=== PATIENT | male | born 1995 | race African-American/Black ===

== ENCOUNTER 2020-03-29 21:22 | Emergency (ER) | payer MEDICAID ==
[~2020-03-29] VITALS: Ht 182.9 cm; Wt 70.5 kg
--- NOTE | 2020-03-29 22:54 | PHYS DOC ---
Past Medical History Past Medical History: Sickle Cell Disease Past Surgical History: No Surgical History Smoking Status: Never Smoker Alcohol Use: Occasionally General Adult EDM: Chief Complaint: PAIN CONTROL HPI: HPI: Patient is a 24 year [id number] male past medical history of sickle cell presents with a chief complaint of sickle cell pain. Patient states his normal sickle cell pain is in his back and his right hip. This is the current location of his current pain. Patient takes oxycodone do not daily for his pain. Patient states pain is been ongoing for 1 week. Patient states usual flares only last 2 or 3 days. Patient is new to the area from [place]. Patient states and his sickle cell clinic in [place] they usually treat patient with IV fluids Toradol Benadryl and Dilaudid. Patient denies any chest pain or shortness of breath. Review of Systems: Review of Systems: Constitutional: Denies fever or chills. [] Eyes: Denies change in visual acuity. [] HENT: Denies nasal congestion or sore throat. [] Respiratory: Denies cough or shortness of breath. [] Cardiovascular: Denies chest pain or edema. [] GI: Denies abdominal pain, nausea, vomiting, bloody stools or diarrhea. [] : Denies dysuria. [] Musculoskeletal: positive back and hip pain Integument: Denies rash. [] Neurologic: Denies headache, focal weakness or sensory changes. [] Endocrine: Denies polyuria or polydipsia. [] Lymphatic: Denies swollen glands. [] Psychiatric: Denies depression or anxiety. [] Heart Score: Risk Factors: Risk Factors: DM, Current or recent (<one month) smoker, HTN, HLP, family history of CAD, obesity. Risk Scores: Score 0 - 3: 2.5% MACE over next 6 weeks - Discharge Home Score 4 - 6: 20.3% MACE over next 6 weeks - Admit for Clinical Observation Score 7 - 10: 72.7% MACE over next 6 weeks - Early Invasive Strategies Allergies: Allergies: Allergies Coded Allergies Type Severity Reaction Last Updated Verified fentanyl Allergy Unknown Unknown 03/29/20 Yes haloperidol Allergy Unknown Unknown 03/29/20 Yes morphine Allergy Unknown Unknown 03/29/20 Yes Physical Exam: PE: Constitutional: Well developed, well nourished, no acute distress, non-toxic appearance. [] HENT: Normocephalic, atraumatic, bilateral external ears normal, oropharynx moist, no oral exudates, nose normal. [] Eyes: PERRLA, EOMI, conjunctiva normal, no discharge. [] Neck: Normal range of motion, no tenderness, supple, no stridor. [] Cardiovascular:Heart rate regular rhythm, no murmur [] Lungs & Thorax: Bilateral breath sounds clear to auscultation [] Abdomen: Bowel sounds normal, soft, no tenderness, no masses, no pulsatile masses. [] Skin: Warm, dry, no erythema, no rash. [] Back: No tenderness, no CVA tenderness. [] Extremities: No tenderness, no cyanosis, no clubbing, ROM intact, no edema. [] Neurologic: Alert and oriented X 3, normal motor function, normal sensory function, no focal deficits noted. [] Psychologic: Affect normal, judgement normal, mood normal. [] Current Patient Data: Vital Signs: Vital Signs Date Time Temp Pulse Resp B/P (MAP) Pulse Ox O2 Delivery O2 Flow Rate FiO2 03/29/20 21:35 98.1 71 18 117/74 (88) 97 Room Air 98.1 EKG: EKG: [] Radiology/Procedures: Radiology/Procedures: [] Course & Med Decision Making: Course & Med Decision Making Pertinent Labs and Imaging studies reviewed. (See chart for details) []Treatment included toradol, NS, benadryl and dilaudid. Patient states pain improved and tolerable. Patient states comfortable to go home. Prior to discharge treated with another dose of diluadid. Patients vital signs stable. Fatou Disclaimer: Fatou Disclaimer: This electronic medical record was generated, in whole or in part, using a voice recognition dictation system. Departure Departure Impression: Primary Impression: Sickle-cell disease with pain Disposition: HOME, SELF-CARE Condition: STABLE Patient Instructions: Sickle Cell Pain Crisis Justicifation of Admission Dx: Justifications for Admission: Justification of Admission Dx: N/A CARLOS ENRIQUE HAWTHORNE DO Mar 29, 2020 22:54
[2020-03-29] MEDS ORDERED: KETOROLAC 30 MG/ML VIAL. IVP ONE (23:00)
[2020-03-29] MEDS ORDERED: diphenhydrAMINE 50 MG/ML VIAL IVP ONE (23:00)
[2020-03-29] MEDS ORDERED: IV NORMAL SALINE 1000ML BAG 1,000 ML IV ONE (23:00)
[2020-03-29] MEDS ORDERED: HYDROmorphone 2 MG/ML VIAL IVP ONE (23:00)
[2020-03-30 01:00] VITALS: BP 104/51
[2020-03-30] MEDS ORDERED: HYDROmorphone 2 MG/ML VIAL IVP ONE (01:00)
== END 2020-03-30 01:14 | disposition home or self-care (01) ==
LOC: ER 21:22
DX: D57.00 Hb-SS disease with crisis, unspecified (principal); M25.551 Pain in right hip; M54.9 Dorsalgia, unspecified; Z88.4 Allergy status to anesthetic agent; Z88.5 Allergy status to narcotic agent; Z88.8 Allergy status to other drugs, medicaments and biological substances
CPT/HCPCS: 96361; 96374; 96375; 96376; 99284; J1170; J1200; J1885; J7030

== ENCOUNTER 2020-06-11 16:55 | Emergency (ER) | payer MEDICAID ==
[~2020-06-11] VITALS: Ht 182.9 cm; Wt 68.0 kg
[2020-06-11 18:28] LABS: BASO # 0.1 x10^3/uL (0.0-0.2); BASO % 1 % (0-3); EOS # 0.3 x10^3/uL (0.0-0.7); EOS % 3 % (0-3); HEMATOCRIT 26.3 % (39.0-53.0); LYMPH % 40 % (24-48); MEAN CORPUSCULAR HEMOGLOBIN 30 pg (25-35); MEAN CORPUSCULAR HGB CONC 34 g/dL (31-37); MEAN CORPUSCULAR VOLUME 86 fL (79-100); MONO # 1.2 x10^3/uL (0.0-1.1); MONO % 12 % (0-9); NEUT # 4.6 x10^3/uL (1.8-7.7); NEUT % 45 % (31-73); PLATELET COUNT 370 x10^3/uL (140-400); RED BLOOD COUNT 3.06 x10^6/uL (4.30-5.70); RED CELL DISTRIBUTION WIDTH 19.6 % (11.5-14.5); WHITE BLOOD COUNT 10.2 x10^3/uL (4.0-11.0)
[2020-06-11] MEDS ORDERED: diphenhydrAMINE 50 MG/ML VIAL IVP ONE (18:30)
[2020-06-11] MEDS ORDERED: ONDANSETRON PF 4 MG/2 ML VIAL. IVP ONE (18:30)
[2020-06-11] MEDS ORDERED: HYDROmorphone 2 MG/ML VIAL IVP ONE ×2 (18:30→20:15)
[2020-06-11] MEDS ORDERED: IV NORMAL SALINE 1000ML BAG 1,000 ML IV ONE (18:30)
[2020-06-11] MEDS ORDERED: KETOROLAC 30 MG/ML VIAL. IVP ONE (18:30)
[2020-06-11 18:40] LABS: CALCIUM 8.7 mg/dL (8.5-10.1); CREATININE 0.8 mg/dL (0.7-1.3); GFR 142.5; POTASSIUM 3.8 mmol/L (3.5-5.1)
[2020-06-11 18:45] LABS: ALBUMIN 3.9 g/dL (3.4-5.0); ALBUMIN/GLOBULIN RATIO 1.3 (1.0-1.7); TOTAL BILIRUBIN 1.7 mg/dL (0.2-1.0); TOTAL PROTEIN 6.9 g/dL (6.4-8.2)
[2020-06-11 20:00] VITALS: BP 96/54
--- NOTE | 2020-06-11 20:54 | PHYS DOC ---
Past Medical History Past Medical History: Sickle Cell Disease Past Surgical History: No Surgical History Smoking Status: Never Smoker Alcohol Use: Occasionally General Adult EDM: Chief Complaint: OTHER COMPLAINTS HPI: HPI: Patient is a 24 year old male presented to the ED today complaining of sickle cell pain. Patient states the pain began 5 days ago. Patient is complaining of 10 out of 10 low back pain as well as right hip pain which she states is consistent with his sickle cell pain. He states he is from [place] and has not established any care in the sickle cell clinic locally. Denies any fever, chest pain or shortness of breath. He states he normally gets IV fluids, Toradol, nausea medicine, Benadryl and Dilaudid. States he has taken oxycodone with no relief Review of Systems: Review of Systems: Constitutional: Denies fever or chills. [] Eyes: Denies change in visual acuity. [] HENT: Denies nasal congestion or sore throat. [] Respiratory: Denies cough or shortness of breath. [] Cardiovascular: Denies chest pain or edema. [] GI: Denies abdominal pain, nausea, vomiting, bloody stools or diarrhea. [] : Denies dysuria. [] Musculoskeletal: Reports right hip pain and low back pain Integument: Denies rash. [] Neurologic: Denies headache, focal weakness or sensory changes. [] Psychiatric: Denies depression or anxiety. [] Heart Score: Risk Factors: Risk Factors: DM, Current or recent (<one month) smoker, HTN, HLP, family history of CAD, obesity. Risk Scores: Score 0 - 3: 2.5% MACE over next 6 weeks - Discharge Home Score 4 - 6: 20.3% MACE over next 6 weeks - Admit for Clinical Observation Score 7 - 10: 72.7% MACE over next 6 weeks - Early Invasive Strategies Current Medications: Current Medications Medications (Trade) Dose Ordered Sig/Heather Start Time Stop Time Status Last Admin Dose Admin Diphenhydramine HCl (Benadryl) 25 mg 1X ONCE 06/11/20 18:30 06/11/20 18:31 DC 06/11/20 18:30 25 MG Hydromorphone HCl (Dilaudid) 1 mg 1X ONCE 06/11/20 20:15 06/11/20 20:16 DC 06/11/20 20:31 1 MG Ketorolac Tromethamine (Toradol 30mg Vial) 30 mg 1X ONCE 06/11/20 18:30 06/11/20 18:31 DC 06/11/20 18:30 30 MG Ondansetron HCl (Zofran) 4 mg 1X ONCE 06/11/20 18:30 06/11/20 18:31 DC 06/11/20 18:30 4 MG Sodium Chloride 1,000 ml @ 1,000 mls/hr 1X ONCE 06/11/20 18:30 06/11/20 19:29 DC 06/11/20 18:33 1,000 MLS/HR Allergies: Allergies: Allergies Coded Allergies Type Severity Reaction Last Updated Verified fentanyl Allergy Unknown Unknown 03/29/20 Yes haloperidol Allergy Unknown Unknown 03/29/20 Yes morphine Allergy Unknown Unknown 03/29/20 Yes Physical Exam: PE: Constitutional: Well developed, well nourished, no acute distress, non-toxic appearance. [] HENT: Normocephalic, atraumatic, bilateral external ears normal, oropharynx moist, no oral exudates, nose normal. [] Eyes: PERRLA, EOMI, conjunctiva normal, no discharge. [] Neck: Normal range of motion, no tenderness, supple, no stridor. [] Cardiovascular:Heart rate regular rhythm, no murmur [] Lungs & Thorax: Bilateral breath sounds clear to auscultation [] Abdomen: Bowel sounds normal, soft, no tenderness, no masses, no pulsatile mas ses. [] Skin: Warm, dry, no erythema, no rash. [] Back: No tenderness, no CVA tenderness. [] Extremities: No tenderness, no cyanosis, no clubbing, ROM intact, no edema. [] Neurologic: Alert and oriented X 3, normal motor function, normal sensory function, no focal deficits noted. [] Psychologic: Affect normal, judgement normal, mood normal. [] Current Patient Data: Labs: Laboratory Tests Test 06/11/20 18:18 White Blood Count 10.2 x10^3/uL (4.0-11.0) Red Blood Count 3.02 x10^6/uL (4.30-5.70) L Hemoglobin 9.0 g/dL (13.0-17.5) L Hematocrit 26.3 % (39.0-53.0) L Mean Corpuscular Volume 86 fL (79-100) Mean Corpuscular Hemoglobin 30 pg (25-35) Mean Corpuscular Hemoglobin Concent 34 g/dL (31-37) Red Cell Distribution Width 19.6 % (11.5-14.5) H Platelet Count 370 x10^3/uL (140-400) Neutrophils (%) (Auto) 45 % (31-73) Lymphocytes (%) (Auto) 40 % (24-48) Monocytes (%) (Auto) 12 % (0-9) H Eosinophils (%) (Auto) 3 % (0-3) Basophils (%) (Auto) 1 % (0-3) Neutrophils # (Auto) 4.6 x10^3/uL (1.8-7.7) Lymphocytes # (Auto) 4.0 x10^3/uL (1.0-4.8) Monocytes # (Auto) 1.2 x10^3/uL (0.0-1.1) H Eosinophils # (Auto) 0.3 x10^3/uL (0.0-0.7) Basophils # (Auto) 0.1 x10^3/uL (0.0-0.2) Absolute Reticulocyte Count 0.193 x10^6/uL (0.020-0.120) Percent Reticulocyte Count 6.4 % (0.5-2.3) H Immature Reticulocyte Fraction 0.70 (0.20-0.60) H Sodium Level 142 mmol/L (136-145) Potassium Level 3.8 mmol/L (3.5-5.1) Chloride Level 105 mmol/L (98-107) Carbon Dioxide Level 27 mmol/L (21-32) Anion Gap 10 (6-14) Blood Urea Nitrogen 6 mg/dL (8-26) L Creatinine 0.8 mg/dL (0.7-1.3) Estimated GFR (Cockcroft-Gault) 142.5 BUN/Creatinine Ratio 8 (6-20) Glucose Level 111 mg/dL (70-99) H Calcium Level 8.7 mg/dL (8.5-10.1) Total Bilirubin 1.7 mg/dL (0.2-1.0) H Aspartate Amino Transferase (AST) 17 U/L (15-37) Alanine Aminotransferase (ALT) 13 U/L (16-63) L Alkaline Phosphatase 171 U/L (46-116) H Total Protein 6.9 g/dL (6.4-8.2) Albumin 3.9 g/dL (3.4-5.0) Albumin/Globulin Ratio 1.3 (1.0-1.7) Laboratory Tests 06/11/20 18:18 Laboratory Tests 06/11/20 18:18 Vital Signs: Vital Signs Date Time Temp Pulse Resp B/P (MAP) Pulse Ox O2 Delivery O2 Flow Rate FiO2 06/11/20 20:31 18 98 Room Air 06/11/20 17:50 98.4 97 116/67 (83) 98.4 EKG: EKG: [] Radiology/Procedures: Radiology/Procedures: [] Course & Med Decision Making: Course & Med Decision Making Pertinent Labs and Imaging studies reviewed. (See chart for details) This is a 24-year-old male patient with history of sickle cell presenting to the ED today complaining of pain to the low back and right hip consistent with his sickle cell. CBC with hemoglobin of 9.0 hematocrit 26.3, reticulocyte count 6.4 immature reticulocyte fraction 0.70 absolute reticulocyte 0.193. We do not have a baseline for this labs. Patient's pain is well controlled. He was given Dilaudid IV fluids Zofran Benadryl and Toradol. He states he is feeling better and would like to be discharged. I offered him admission but he declined. He was sent home. Encouraged to follow-up with a sickle cell clinic locally [facility]. Fatou Disclaimer: Fatou Disclaimer: This electronic medical record was generated, in whole or in part, using a voice recognition dictation system. Departure Departure Impression: Primary Impression: Sickle cell anemia with pain Disposition: 01 DC HOME SELF CARE/HOMELESS Condition: STABLE Referrals: NO PCP (PCP) Please follow-up with [facility] sickle cell clinic Patient Instructions: Sickle Cell Pain Crisis Additional Instructions: You were evaluated in the emergency room for sickle cell pain. Please follow-up with a sickle cell clinic locally including [facility]. Continue taking your oxycodone as needed for pain. AI SOLOMON LIVESTOCK COUNTER Jun 11, 2020 20:54
== END 2020-06-11 21:04 | disposition home or self-care (01) ==
LOC: ER 16:55
DX: D57.00 Hb-SS disease with crisis, unspecified (principal); M54.5 Low back pain; M25.551 Pain in right hip; Z88.4 Allergy status to anesthetic agent; Z88.5 Allergy status to narcotic agent; Z88.8 Allergy status to other drugs, medicaments and biological substances
CPT/HCPCS: 36415; 80053; 85025; 85045; 96361; 96374; 96375; 96376; 99285; J1170; J1200; J1885; J2405; J7030

== ENCOUNTER 2020-06-25 10:59 | Emergency (ER) | payer MEDICAID ==
[~2020-06-25] VITALS: Ht 182.9 cm; Wt 68.1 kg
[2020-06-25] MEDS ORDERED: IV NORMAL SALINE 1000ML BAG 1,000 ML IV ONE (12:15)
[2020-06-25 12:18] LABS: BASO # 0.1 x10^3/uL (0.0-0.2); BASO % 1 % (0-3); EOS # 0.1 x10^3/uL (0.0-0.7); EOS % 1 % (0-3); HEMATOCRIT 25.6 % (39.0-53.0); HEMOGLOBIN 8.7 g/dL (13.0-17.5); LYMPH # 2.4 x10^3/uL (1.0-4.8); LYMPH % 23 % (24-48); MEAN CORPUSCULAR HEMOGLOBIN 30 pg (25-35); MEAN CORPUSCULAR HGB CONC 34 g/dL (31-37); MEAN CORPUSCULAR VOLUME 89 fL (79-100); MONO # 0.9 x10^3/uL (0.0-1.1); MONO % 9 % (0-9); NEUT # 6.8 x10^3/uL (1.8-7.7); NEUT % 66 % (31-73); PLATELET COUNT 411 x10^3/uL (140-400); RED BLOOD COUNT 2.88 x10^6/uL (4.30-5.70); WHITE BLOOD COUNT 10.3 x10^3/uL (4.0-11.0)
[2020-06-25 12:31] LABS: CALCIUM 9.2 mg/dL (8.5-10.1); CREATININE 0.9 mg/dL (0.7-1.3); GFR 123.4
[2020-06-25 12:36] LABS: ALBUMIN 3.9 g/dL (3.4-5.0); ALBUMIN/GLOBULIN RATIO 1.3 (1.0-1.7); TOTAL BILIRUBIN 1.7 mg/dL (0.2-1.0)
[2020-06-25] MEDS ORDERED: HYDROmorphone 2 MG/ML VIAL IVP ONE (13:00)
[2020-06-25 13:45] VITALS: BP 106/80
--- NOTE | 2020-06-25 13:49 | ED.ADGEN ---
Past Medical History Past Medical History: Sickle Cell Disease Past Surgical History: No Surgical History Smoking Status: Never Smoker Alcohol Use: Occasionally General Adult EDM: Chief Complaint: GENERALIZED BODY ACHES HPI: HPI: Patient is a 25 year old AA male who presents emergency department with complaints of generalized body aches and back pain for the last 5 days. Patient states he has a history of sickle cell disease. Patient states that he took his oxycodone this morning at 10:00 with no relief of his pain. He denies any shortness of breath, chest pain, palpitations, abdominal pain, nausea, vomiting, diarrhea, numbness, tingling, or weakness. He denies any fever, cough, or fatigue. He denies any joint swelling or erythema. The patient currently rates his pain a 10 out of 10 on the pain scale, he denies any alleviating factors. Review of Systems: Review of Systems: Complete ROS is negative unless otherwise noted in HPI. Current Medications: Current Medications Medications (Trade) Dose Ordered Sig/Heather Start Time Stop Time Status Last Admin Dose Admin Hydromorphone HCl (Dilaudid) 1 mg 1X ONCE 06/25/20 13:00 06/25/20 13:01 DC 06/25/20 13:36 1 MG Sodium Chloride 1,000 ml @ 1,000 mls/hr Q1H ONCE 06/25/20 12:15 06/25/20 13:14 DC 06/25/20 12:45 1,000 MLS/HR Allergies: Allergies: Allergies Coded Allergies Type Severity Reaction Last Updated Verified fentanyl Allergy Intermediate Unknown 06/25/20 Yes haloperidol Allergy Intermediate Unknown 06/25/20 Yes morphine Allergy Intermediate Unknown 06/25/20 Yes mushroom Allergy Intermediate 06/25/20 Yes Physical Exam: PE: See Above Constitutional: Well developed, well nourished, no acute distress, non-toxic appearance. [] HENT: Normocephalic, atraumatic, bilateral external ears normal, nose normal. [] Eyes: PERRLA, EOMI, conjunctiva normal, no discharge. [] Neck: Normal range of motion, no stridor. [] Cardiovascular:Heart rate regular rhythm Lungs & Thorax: Respirations even and unlabored, no retractions, no respiratory distress Abdomen: soft, no tenderness Skin: Warm, dry, no erythema, no rash. [] Extremities: No cyanosis, ROM intact, no edema. [] Neurologic: Alert and oriented X 3, no focal deficits noted. [] Psychologic: Affect normal, judgement normal, mood normal. [] Current Patient Data: Labs: Laboratory Tests Test 06/25/20 11:45 White Blood Count 10.3 x10^3/uL (4.0-11.0) Red Blood Count 2.85 x10^6/uL (4.30-5.70) L Hemoglobin 8.7 g/dL (13.0-17.5) L Hematocrit 25.6 % (39.0-53.0) L Mean Corpuscular Volume 89 fL (79-100) Mean Corpuscular Hemoglobin 30 pg (25-35) Mean Corpuscular Hemoglobin Concent 34 g/dL (31-37) Red Cell Distribution Width 20.0 % (11.5-14.5) H Platelet Count 411 x10^3/uL (140-400) H Neutrophils (%) (Auto) 66 % (31-73) Lymphocytes (%) (Auto) 23 % (24-48) L Monocytes (%) (Auto) 9 % (0-9) Eosinophils (%) (Auto) 1 % (0-3) Basophils (%) (Auto) 1 % (0-3) Neutrophils # (Auto) 6.8 x10^3/uL (1.8-7.7) Lymphocytes # (Auto) 2.4 x10^3/uL (1.0-4.8) Monocytes # (Auto) 0.9 x10^3/uL (0.0-1.1) Eosinophils # (Auto) 0.1 x10^3/uL (0.0-0.7) Basophils # (Auto) 0.1 x10^3/uL (0.0-0.2) Absolute Reticulocyte Count 0.234 x10^6/uL (0.020-0.120) Percent Reticulocyte Count 8.2 % (0.5-2.3) H Immature Reticulocyte Fraction 0.72 (0.20-0.60) H Sodium Level 141 mmol/L (136-145) Potassium Level 4.0 mmol/L (3.5-5.1) Chloride Level 103 mmol/L (98-107) Carbon Dioxide Level 28 mmol/L (21-32) Anion Gap 10 (6-14) Blood Urea Nitrogen 6 mg/dL (8-26) L Creatinine 0.9 mg/dL (0.7-1.3) Estimated GFR (Cockcroft-Gault) 123.4 BUN/Creatinine Ratio 7 (6-20) Glucose Level 107 mg/dL (70-99) H Calcium Level 9.2 mg/dL (8.5-10.1) Total Bilirubin 1.7 mg/dL (0.2-1.0) H Aspartate Amino Transferase (AST) 24 U/L (15-37) Alanine Aminotransferase (ALT) 21 U/L (16-63) Alkaline Phosphatase 161 U/L (46-116) H Total Protein 7.0 g/dL (6.4-8.2) Albumin 3.9 g/dL (3.4-5.0) Albumin/Globulin Ratio 1.3 (1.0-1.7) Laboratory Tests 06/25/20 11:45 Laboratory Tests 06/25/20 11:45 Vital Signs: Vital Signs Date Time Temp Pulse Resp B/P (MAP) Pulse Ox O2 Delivery O2 Flow Rate FiO2 06/25/20 13:36 16 100 Room Air 06/25/20 11:17 98.5 100 113/59 (77) 98.5 EKG: EKG: [] Heart Score: Risk Factors: Risk Factors: DM, Current or recent (<one month) smoker, HTN, HLP, family history of CAD, obesity. Risk Scores: Score 0 - 3: 2.5% MACE over next 6 weeks - Discharge Home Score 4 - 6: 20.3% MACE over next 6 weeks - Admit for Clinical Observation Score 7 - 10: 72.7% MACE over next 6 weeks - Early Invasive Strategies Radiology/Procedures: Radiology/Procedures: [] Course & Med Decision Making: Course & Med Decision Making Pertinent Labs and Imaging studies reviewed. (See chart for details) 25-year-old male seen for sickle cell pain. Patient is hemoglobin is 8.7, his previous hemoglobin was 9.0. BMP revealed elevated bilirubin 1.7, elevated 161. Patient was given 1 L normal saline, 1 mg of Dilaudid in the emergency room he reported feeling better after these medications and he would like to go home.. I advised patient to continue taking his oxycodone at home as prescribed. Patient needs to follow-up with his primary care physician, return to the ER if symptoms worsen, fever, chest pain, or shortness of breath develops. Rigobertoon Disclaimer: Fatou Disclaimer: This electronic medical record was generated, in whole or in part, using a voice recognition dictation system. Departure Departure Impression: Primary Impression: Sickle cell anemia with pain Disposition: 01 DC HOME SELF CARE/HOMELESS Condition: STABLE Referrals: NO PCP (PCP) Patient Instructions: Sickle Cell Pain Crisis, [id number] Additional Instructions: Continue taking oxycodone at home as prescribed. Follow-up with your primary care physician, return to the ER if symptoms worsen, or if fever, chest pain, or shortness of breath develops. JENNA PONCE DRUG DEPARTMENT WORKER Jun 25, 2020 13:49
== END 2020-06-25 14:02 | disposition home or self-care (01) ==
LOC: ER 10:59
DX: D57.00 Hb-SS disease with crisis, unspecified (principal); Z88.4 Allergy status to anesthetic agent; Z88.5 Allergy status to narcotic agent; Z88.8 Allergy status to other drugs, medicaments and biological substances; Z91.018 Allergy to other foods
CPT/HCPCS: 36415; 80053; 85025; 85045; 96361; 96374; 99283; J1170; J7030

== ENCOUNTER 2020-08-29 11:13 | Emergency (ER) | payer MEDICAID ==
[~2020-08-29] VITALS: Ht 182.9 cm; Wt 68.0 kg
[2020-08-29 11:30] VITALS: BP 120/76
[2020-08-29] MEDS ORDERED: KETOROLAC 30 MG/ML VIAL. IVP ONE (11:45)
[2020-08-29] MEDS ORDERED: diphenhydrAMINE 50 MG/ML VIAL IVP ONE ×2 (11:45→14:00)
[2020-08-29] MEDS ORDERED: IV NORMAL SALINE 1000ML BAG 1,000 ML IV ONE (11:45)
[2020-08-29] MEDS ORDERED: HYDROmorphone 2 MG/ML VIAL IVP ONE ×2 (11:45→14:00)
[2020-08-29] MEDS ORDERED: PROCHLORPERAZINE 10 MG/2 ML VIAL. IV ONE (11:45)
--- NOTE | 2020-08-29 11:53 | PHYS DOC ---
Past Medical History Past Medical History: Sickle Cell Disease Past Surgical History: No Surgical History Smoking Status: Never Smoker Alcohol Use: Occasionally General Adult EDM: Chief Complaint: HIP PAIN HPI: HPI: Patient is a 25 year old male presenting to the ED today complaining of sickle cell pain rated as moderate described as sharp and shooting to the lower back, bilateral hips for two days.. Patient states the pain began 5 days ago. Denies any fever, chest pain or shortness of breath. He states he normally gets IV fluids, Toradol, nausea medicine, Benadryl and Dilaudid. States he has taken oxycodone with no relief Review of Systems: Review of Systems: Constitutional: Denies fever or chills. [] Eyes: Denies change in visual acuity. [] HENT: Denies nasal congestion or sore throat. [] Respiratory: Denies cough or shortness of breath. [] Cardiovascular: Denies chest pain or edema. [] GI: Denies abdominal pain, nausea, vomiting, bloody stools or diarrhea. [] : Denies dysuria. [] Musculoskeletal: Reports bilateral hip pain, low back pain due to sickle cell Integument: Denies rash. [] Neurologic: Denies headache, focal weakness or sensory changes. [] Endocrine: Denies polyuria or polydipsia. [] Lymphatic: Denies swollen glands. [] Psychiatric: Denies depression or anxiety. [] Heart Score: Risk Factors: Risk Factors: DM, Current or recent (<one month) smoker, HTN, HLP, family history of CAD, obesity. Risk Scores: Score 0 - 3: 2.5% MACE over next 6 weeks - Discharge Home Score 4 - 6: 20.3% MACE over next 6 weeks - Admit for Clinical Observation Score 7 - 10: 72.7% MACE over next 6 weeks - Early Invasive Strategies Allergies: Allergies: Allergies Coded Allergies Type Severity Reaction Last Updated Verified fentanyl Allergy Intermediate Unknown 06/25/20 Yes haloperidol Allergy Intermediate Unknown 06/25/20 Yes morphine Allergy Intermediate Unknown 06/25/20 Yes mushroom Allergy Intermediate 06/25/20 Yes Physical Exam: PE: Constitutional: Well developed, well nourished, no acute distress, non-toxic appearance. [] HENT: Normocephalic, atraumatic, bilateral external ears normal, oropharynx moist, no oral exudates, nose normal. [] Eyes: PERRLA, EOMI, conjunctiva normal, no discharge. [] Neck: Normal range of motion, no tenderness, supple, no stridor. [] Cardiovascular:Heart rate regular rhythm, no murmur [] Lungs & Thorax: Bilateral breath sounds clear to auscultation [] Abdomen: Bowel sounds normal, soft, no tenderness, no masses, no pulsatile masses. [] Skin: Warm, dry, no erythema, no rash. [] Back: No tenderness, no CVA tenderness. [] Extremities: No tenderness, no cyanosis, no clubbing, ROM intact, no edema. [] Neurologic: Alert and oriented X 3, normal motor function, normal sensory function, no focal deficits noted. [] Psychologic: Affect normal, judgement normal, mood normal. [] Current Patient Data: Vital Signs: Vital Signs Date Time Temp Pulse Resp B/P (MAP) Pulse Ox O2 Delivery O2 Flow Rate FiO2 08/29/20 11:30 98.4 77 16 120/76 (91) 97 Room Air 98.4 EKG: EKG: [] Radiology/Procedures: Radiology/Procedures: [] Course & Med Decision Making: Course & Med Decision Making Pertinent Labs and Imaging studies reviewed. (See chart for details) This is a 25-year-old male patient with history of sickle cell presenting today complaining of low back pain and bilateral hip pain for 2 days. Patient has taken oxycodone with no relief. Denies any fever. CBC with a normal WBC, hemoglobin 7.7, hematocrit 21.7, percent reticulocyte count 10.3, absolute reticulocyte 0.257, immature reticulocyte 0.73. Patient was given IV fluids and pain medicine. He states he is feeling better and would like to go home. Instructed to follow-up with his sickle cell clinic. Provided return precautions and discharged in stable condition Fatou Disclaimer: Fatou Disclaimer: This electronic medical record was generated, in whole or in part, using a voice recognition dictation system. Departure Departure Impression: Primary Impression: Sickle cell anemia with pain Disposition: 09 ADMITTED INPT THIS HOSP Condition: STABLE Referrals: NO PCP (PCP) Follow-up with your sickle cell clinic Patient Instructions: Sickle Cell Pain Crisis, [id number] Additional Instructions: You were seen for sickle cell pain. Please follow-up with your sickle cell clinic next week. Come back to the ED at any point symptoms worsen AI SOLOMON APRN Aug 29, 2020 11:53
[2020-08-29 12:47] LABS: BASO # 0.2 x10^3/uL (0.0-0.2); BASO % 2 % (0-3); EOS # 0.1 x10^3/uL (0.0-0.7); EOS % 1 % (0-3); HEMATOCRIT 21.7 % (39.0-53.0); HEMOGLOBIN 7.7 g/dL (13.0-17.5); LYMPH # 4.1 x10^3/uL (1.0-4.8); LYMPH % 41 % (24-48); MEAN CORPUSCULAR HEMOGLOBIN 31 pg (25-35); MEAN CORPUSCULAR HGB CONC 36 g/dL (31-37); MEAN CORPUSCULAR VOLUME 87 fL (79-100); MONO % 10 % (0-9); NEUT # 4.5 x10^3/uL (1.8-7.7); NEUT % 46 % (31-73); PLATELET COUNT 425 x10^3/uL (140-400); RED CELL DISTRIBUTION WIDTH 21.2 % (11.5-14.5); WHITE BLOOD COUNT 9.9 x10^3/uL (4.0-11.0)
[2020-08-29 12:49] LABS: CALCIUM 8.9 mg/dL (8.5-10.1); CREATININE 0.9 mg/dL (0.7-1.3); GFR 123.4; POTASSIUM 4.1 mmol/L (3.5-5.1)
[2020-08-29 12:55] LABS: ALBUMIN/GLOBULIN RATIO 1.4 (1.0-1.7); TOTAL BILIRUBIN 2.5 mg/dL (0.2-1.0); TOTAL PROTEIN 6.9 g/dL (6.4-8.2)
[2020-08-29 13:28] LABS: ANISOCYTOSIS MOD; PLT ESTIMATE INCREASED (ADEQUATE); POIKILOCYTOSIS PRESENT; SICKLE CELLS PRESENT
[2020-08-29 13:29] LABS: OVALOCYTES PRESENT; TARGET CELLS MOD
[2020-08-29] MEDS ORDERED: ONDANSETRON PF 4 MG/2 ML VIAL. IVP ONE (14:00)
== END 2020-08-29 14:10 | disposition home or self-care (01) ==
LOC: ER 11:13
DX: D57.00 Hb-SS disease with crisis, unspecified (principal); Z88.4 Allergy status to anesthetic agent; Z88.5 Allergy status to narcotic agent; Z88.8 Allergy status to other drugs, medicaments and biological substances; Z91.018 Allergy to other foods
CPT/HCPCS: 36415; 80053; 85025; 85045; 96361; 96374; 96375; 96376; 99284; J0780; J1170; J1200; J1885; J2405; J7030

== ENCOUNTER 2020-09-27 11:54 | Emergency (ER) | payer MEDICAID ==
[~2020-09-27] VITALS: Ht 182.9 cm; Wt 68.0 kg
--- NOTE | 2020-09-27 12:09 | PHYS DOC ---
Past Medical History Past Medical History: Sickle Cell Disease Past Surgical History: No Surgical History Smoking Status: Never Smoker Alcohol Use: Occasionally General Adult EDM: Chief Complaint: Chest pain HPI: HPI: Patient is a 25 year old male who presented to ER due to substernal chest pain this morning. Patient has history of sickle cell disease, patient felt like he had another chest pain crisis. Patient is on sickle cell medication, on oxycodone for pain. Patient took pain medication but still in pain so he came here for evaluation. Patient denies any cough or fever, no trouble breathing. Patient denies any abdominal pain, no nausea vomiting Review of Systems: Review of Systems: Constitutional: Denies fever or chills. [] Eyes: Denies change in visual acuity. [] HENT: Denies nasal congestion or sore throat. [] Respiratory: Denies cough or shortness of breath. [] Cardiovascular: Positive for chest pain, no edema GI: Denies abdominal pain, nausea, vomiting, bloody stools or diarrhea. [] : Denies dysuria. [] Musculoskeletal: Denies back pain or joint pain. [] Integument: Denies rash. [] Neurologic: Denies headache, focal weakness or sensory changes. [] Endocrine: Denies polyuria or polydipsia. [] Lymphatic: Denies swollen glands. [] Psychiatric: Denies depression or anxiety. [] Heart Score: C/O Chest Pain: Yes HEART Score for Chest Pain: HEART Score for Chest Pain Response (Comments) Value History Slighlty/Non-Suspicious 0 ECG Normal 0 Age < 45 0 Risk Factors No Risk Factors 0 Troponin < Normal Limit 0 Total 0 Risk Factors: Risk Factors: DM, Current or recent (<one month) smoker, HTN, HLP, family history of CAD, obesity. Risk Scores: Score 0 - 3: 2.5% MACE over next 6 weeks - Discharge Home Score 4 - 6: 20.3% MACE over next 6 weeks - Admit for Clinical Observation Score 7 - 10: 72.7% MACE over next 6 weeks - Early Invasive Strategies Allergies: Allergies: Allergies Coded Allergies Type Severity Reaction Last Updated Verified fentanyl Allergy Intermediate Unknown 06/25/20 Yes haloperidol Allergy Intermediate Unknown 06/25/20 Yes morphine Allergy Intermediate Unknown 06/25/20 Yes mushroom Allergy Intermediate 06/25/20 Yes Physical Exam: PE: Constitutional: Well developed, well nourished, no acute distress, non-toxic appearance. [] HENT: Normocephalic, atraumatic, bilateral external ears normal, oropharynx moist, no oral exudates, nose normal. [] Eyes: PERRLA, EOMI, conjunctiva normal, no discharge. [] Neck: Normal range of motion, no tenderness, supple, no stridor. [] Cardiovascular:Heart rate regular rhythm, no murmur [] Lungs & Thorax: Bilateral breath sounds clear to auscultation [] Abdomen: Bowel sounds normal, soft, no tenderness, no masses, no pulsatile masses. [] Skin: Warm, dry, no erythema, no rash. [] Back: No tenderness, no CVA tenderness. [] Extremities: No tenderness, no cyanosis, no clubbing, ROM intact, no edema. [] Neurologic: Alert and oriented X 3, normal motor function, normal sensory fu nction, no focal deficits noted. [] Psychologic: Affect normal, judgement normal, mood normal. [] Current Patient Data: Labs: Laboratory Tests Test 09/27/20 12:45 White Blood Count 14.4 x10^3/uL Red Blood Count 2.35 x10^6/uL Hemoglobin 7.2 g/dL Hematocrit 21.1 % Mean Corpuscular Volume 88 fL Mean Corpuscular Hemoglobin 30 pg Mean Corpuscular Hemoglobin Concent 34 g/dL Red Cell Distribution Width 21.7 % Platelet Count 328 x10^3/uL Neutrophils (%) (Auto) 52 % Lymphocytes (%) (Auto) 34 % Monocytes (%) (Auto) 11 % Eosinophils (%) (Auto) 2 % Basophils (%) (Auto) 1 % Neutrophils # (Auto) 7.5 x10^3/uL Lymphocytes # (Auto) 4.8 x10^3/uL Monocytes # (Auto) 1.6 x10^3/uL Eosinophils # (Auto) 0.3 x10^3/uL Basophils # (Auto) 0.2 x10^3/uL Platelet Estimate Adequate Polychromasia Present Anisocytosis Present Microcytosis Present Sickle Cells Present Absolute Reticulocyte Count 0.233 x10^6/uL Percent Reticulocyte Count 9.9 % Immature Reticulocyte Fraction 0.70 Sodium Level 144 mmol/L Potassium Level 4.3 mmol/L Chloride Level 108 mmol/L Carbon Dioxide Level 30 mmol/L Anion Gap 6 Blood Urea Nitrogen 8 mg/dL Creatinine 1.0 mg/dL Estimated GFR (Cockcroft-Gault) 109.3 BUN/Creatinine Ratio 8 Glucose Level 92 mg/dL Calcium Level 8.7 mg/dL Magnesium Level 2.1 mg/dL Total Bilirubin 1.6 mg/dL Aspartate Amino Transf (AST/SGOT) 30 U/L Alanine Aminotransferase (ALT/SGPT) 35 U/L Alkaline Phosphatase 119 U/L Troponin I Quantitative < 0.017 ng/mL Total Protein 6.5 g/dL Albumin 3.8 g/dL Albumin/Globulin Ratio 1.4 Current Medications Medications (Trade) Dose Ordered Sig/Heather Route PRN Reason Start Time Stop Time Status Last Admin Dose Admin Ketorolac Tromethamine (Toradol 30mg Vial) 30 mg 1X ONCE IVP 09/27/20 13:00 09/27/20 13:01 DC 09/27/20 12:51 Sodium Chloride 1,000 ml @ 1,000 mls/hr 1X ONCE IV 09/27/20 13:00 09/27/20 13:59 DC 09/27/20 12:50 Metoclopramide HCl (Reglan Vial) 10 mg 1X ONCE IVP 09/27/20 13:00 09/27/20 13:01 DC 09/27/20 12:51 Diphenhydramine HCl (Benadryl) 25 mg 1X ONCE IVP 09/27/20 13:30 09/27/20 13:32 DC 09/27/20 13:24 Hydromorphone HCl (Dilaudid) 1 mg 1X ONCE IVP 09/27/20 13:30 09/27/20 13:32 DC 09/27/20 13:24 EKG: EKG: [] Radiology/Procedures: Radiology/Procedures: [][facility] [address] [place] [address] IMAGING REPORT Signed PATIENT: BAMBI MALONEY ACCOUNT: [id number] : 1995 LOCATION: ER AGE: 25 SEX: M EXAM STATUS: PRE ER ORD. PHYSICIAN: JORDI MILLS DO REASON: chest pain, sickle cell crisis PROCEDURE: CHEST AP ONLY XR CHEST 1V Clinical History: Reason: chest pain, sickle cell crisis / Spl. Instructions: / History: Technique: AP view of the chest was obtained at 09/27/2020 12:15 PM. Comparison: None. Findings: The cardiomediastinal silhouette is normal. The pulmonary vasculature is normal. There is barely perceptible reticular opacities of the lungs. Impression: Minimal interstitial infiltrates could be fluid overload or atypical pneumonia. Electronically signed by: Louie Ayala III, MD (09/27/2020 12:30 PM) [id number] DICTATED and SIGNED BY: LOUIE AYALA III, MD DATE: 09/27/20 [id number] 0 Course & Med Decision Making: Course & Med Decision Making Pertinent Labs and Imaging studies reviewed. (See chart for details) Patient is a 25-year-old male with history of sickle cell, presented to ER due to sickle cell pain crisis. Patient was given IV fluid, IV pain medication. Patient felt much better. Patient would like to go home. Patient is not in aplastic crisis, he is anemic but it is at baseline. Patient said he is scheduled to see his doctor next week. Dragon Disclaimer: Dragon Disclaimer: This electronic medical record was generated, in whole or in part, using a voice recognition dictation system. Departure Departure Impression: Primary Impression: Sickle cell anemia with pain Disposition: 01 DC HOME SELF CARE/HOMELESS Condition: IMPROVED Referrals: NO PCP (PCP) Please follow up with your doctor on Monday for reevaluation Patient Instructions: Sickle Cell Anemia, Sickle Cell Pain Crisis Additional Instructions: Thank you for visiting our Emergency Department. We appreciate you trusting us with your care. If any additional problems come up don't hesitate to return to visit us. Please follow up with your primary care provider so they can plan additional care if needed and know about the problem that you had. If symptoms worsen come back to the Emergency Department. Any concerning symptoms that start such as chest pain, shortness of air, weakness or numbness on one side of the body, running high fevers or any other concerning symptoms return to the ER. JORDI MILLS DO Sep 27, 2020 12:09
--- NOTE | 2020-09-27 12:33 | RAD ---
XR CHEST 1V Clinical History: Reason: chest pain, sickle cell crisis / Spl. Instructions: / History: Technique: AP view of the chest was obtained at 09/27/2020 12:15 PM. Comparison: None. Findings: The cardiomediastinal silhouette is normal. The pulmonary vasculature is normal. There is barely perc eptible reticular opacities of the lungs. Impression: Minimal interstitial infiltrates could be fluid overload or atypical pneumonia. Electronically signed by: Lanre Ayala III, MD (09/27/2020 12:30 PM) [id number]
[2020-09-27 12:56] LABS: BASO # 0.2 x10^3/uL (0.0-0.2); BASO % 1 % (0-3); EOS # 0.3 x10^3/uL (0.0-0.7); EOS % 2 % (0-3); HEMATOCRIT 21.1 % (39.0-53.0); HEMOGLOBIN 7.2 g/dL (13.0-17.5); LYMPH # 4.8 x10^3/uL (1.0-4.8); LYMPH % 34 % (24-48); MEAN CORPUSCULAR HEMOGLOBIN 30 pg (25-35); MEAN CORPUSCULAR HGB CONC 34 g/dL (31-37); MEAN CORPUSCULAR VOLUME 88 fL (79-100); MONO # 1.6 x10^3/uL (0.0-1.1); MONO % 11 % (0-9); NEUT # 7.5 x10^3/uL (1.8-7.7); NEUT % 52 % (31-73); PLATELET COUNT 328 x10^3/uL (140-400); RED BLOOD COUNT 2.39 x10^6/uL (4.30-5.70); RED CELL DISTRIBUTION WIDTH 21.7 % (11.5-14.5); WHITE BLOOD COUNT 14.4 x10^3/uL (4.0-11.0)
[2020-09-27] MEDS ORDERED: IV NORMAL SALINE 1000ML BAG 1,000 ML IV ONE (13:00)
[2020-09-27] MEDS ORDERED: KETOROLAC 30 MG/ML VIAL. IVP ONE (13:00)
[2020-09-27] MEDS ORDERED: METOCLOPRAMIDE HCL 10 MG/2 ML VIAL. IVP ONE (13:00)
[2020-09-27 13:05] LABS: CALCIUM 8.7 mg/dL (8.5-10.1); GFR 109.3; POTASSIUM 4.3 mmol/L (3.5-5.1)
[2020-09-27 13:10] LABS: ALBUMIN 3.8 g/dL (3.4-5.0); ALBUMIN/GLOBULIN RATIO 1.4 (1.0-1.7); MAGNESIUM 2.1 mg/dL (1.8-2.4); TOTAL BILIRUBIN 1.6 mg/dL (0.2-1.0); TOTAL PROTEIN 6.5 g/dL (6.4-8.2)
[2020-09-27 13:20] LABS: ANISOCYTOSIS PRESENT; MICROCYTOSIS PRESENT; PLT ESTIMATE ADEQUATE (ADEQUATE); POLYCHROMASIA PRESENT; SICKLE CELLS PRESENT
[2020-09-27] MEDS ORDERED: HYDROmorphone 2 MG/ML VIAL IVP ONE (13:30)
[2020-09-27] MEDS ORDERED: diphenhydrAMINE 50 MG/ML VIAL IVP ONE (13:30)
[2020-09-27 14:03] LABS: BILIRUBIN,URINE NEGATIVE (NEG); CLARITY,URINE CLEAR; COLOR,URINE YELLOW; NITRITE,URINE NEGATIVE (NEG); PH,URINE 5.5 (<5.0-8.0); PROTEIN,URINE NEGATIVE (NEG-TRACE); UROBILINOGEN,URINE 0.2 mg/dL (0.2 mg/dL)
[2020-09-27 14:13] VITALS: BP 103/54
[2020-09-27 14:13] LABS: BACTERIA,URINE 0 /HPF (0-FEW); RBC,URINE 0 /HPF (0-2); WBC,URINE RARE /HPF (0-4)
--- NOTE | 2020-09-27 15:59 | EKG ---
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
--- NOTE | 2020-09-29 10:09 | NUR ---
IP: Attempted to contact pt concerning COVID results. No answer, left a voicemail to return the call.
== END 2020-09-27 14:22 | disposition home or self-care (01) ==
LOC: ER 11:54
DX: D57.80 Other sickle-cell disorders without crisis (principal); Z20.822 Contact with and (suspected) exposure to COVID-19; R07.89 Other chest pain; Z88.8 Allergy status to other drugs, medicaments and biological substances; Z88.6 Allergy status to analgesic agent
CPT/HCPCS: 36415; 71045; 80053; 81001; 83735; 84484; 85025; 85045; 93005; 96361; 96374; 96375; 99285; C9803; J1170; J1200; J1885; J2765; J7030; U0003

== ENCOUNTER 2020-12-02 15:05 | Emergency (ER) | payer MEDICAID ==
[~2020-12-02] VITALS: Ht 182.9 cm; Wt 72.0 kg
[2020-12-02] MEDS ORDERED: IV NORMAL SALINE 1000ML BAG 1,000 ML IV SCH (17:15)
--- NOTE | 2020-12-02 17:21 | PHYS DOC ---
Past Medical History Past Medical History: Sickle Cell Disease Past Surgical History: No Surgical History Smoking Status: Never Smoker Alcohol Use: Occasionally General Adult EDM: Chief Complaint: PAIN CONTROL HPI: HPI: Patient is a 25 year old male who presents with states it is Monday has had low back pain he is been taking his oxycodone of which he took last to 1500 but is not helping. He states this feels like his normal sickle cell crisis. 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 Currently rates his pain 9 out of 10. He states he usually gets Dilaudid, Benadryl, fluids and Toradol. Patient denies chest pain, shortness of breath, headache, dizziness, abdominal pain, nausea, vomiting, diarrhea, constipation, numbness or tingling, focal weakness, vision changes. Patient is calm and cooperative and listening to music in the room. Patient states he has a history of sickle cell disease and had a right wrist surgery at 2 months ago. Review of Systems: Review of Systems: Constitutional: Denies fever or chills. [] Eyes: Denies change in visual acuity. [] HENT: Denies nasal congestion or sore throat. [] Respiratory: Denies cough or shortness of breath. [] Cardiovascular: Denies chest pain or edema. [] GI: Denies abdominal pain, nausea, vomiting, bloody stools or diarrhea. [] : Denies dysuria. [] Musculoskeletal: + Low back pain or denies joint pain. [] Integument: Denies rash. [] Neurologic: Denies headache, focal weakness or sensory changes. [] Endocrine: Denies polyuria or polydipsia. [] Lymphatic: Denies swollen glands. [] Psychiatric: Denies depression or anxiety. [] Heart Score: C/O Chest Pain: No Risk Factors: Risk Factors: DM, Current or recent (<one month) smoker, HTN, HLP, family history of CAD, obesity. Risk Scores: Score 0 - 3: 2.5% MACE over next 6 weeks - Discharge Home Score 4 - 6: 20.3% MACE over next 6 weeks - Admit for Clinical Observation Score 7 - 10: 72.7% MACE over next 6 weeks - Early Invasive Strategies Allergies: Allergies: Allergies Coded Allergies Type Severity Reaction Last Updated Verified fentanyl Allergy Intermediate Rash 09/27/20 Yes haloperidol Allergy Intermediate Swelling 09/27/20 Yes morphine Allergy Intermediate Hives 09/27/20 Yes mushroom Allergy Intermediate 06/25/20 Yes Physical Exam: PE: Constitutional: Well developed, well nourished, no acute distress, non-toxic appearance. [] HENT: Normocephalic, atraumatic, bilateral external ears normal, oropharynx moist, no oral exudates, nose normal. [] Eyes: PERRLA, EOMI, conjunctiva normal, no discharge. [] Neck: Normal range of motion, no tenderness, supple, no stridor. [] Cardiovascular:Heart rate regular rhythm, no murmur [] Lungs & Thorax: Bilateral breath sounds clear to auscultation [] Abdomen: Bowel sounds normal, soft, no tenderness, no masses, no pulsatile masses. [] Skin: Warm, dry, no erythema, no rash. [] Back: No tenderness, no CVA tenderness. [] Extremities: No tenderness, no cyanosis, no clubbing, ROM intact, no edema. [] Neurologic: Alert and oriented X 3, normal motor function, normal sensory function, no focal deficits noted. [] Psychologic: Affect normal, judgement normal, mood normal. Normal physical exam [] EKG: EK and read by Dr. Atkinson as sinus rhythm with hyper repolarization in V2 and 3 but no STEMI. Patient has no chest pain. Radiology/Procedures: Radiology/Procedures: [] Impression: [facility] [address] [place], [place] [id number] IMAGING REPORT Signed PATIENT: BAMBI MALONEY ACCOUNT: [id number] : 1995 LOCATION: ER AGE: 25 SEX: M EXAM STATUS: REG ER ORD. PHYSICIAN: SHOBHA PATEL APRN REASON: sickle cell crisis PROCEDURE: PORTABLE CHEST 1V EXAM: Chest, single view. HISTORY: Sickle cell crisis. COMPARISON: 09/27/2020 FINDINGS: A frontal view of the chest is obtained. There is no infiltrate, pleural effusion or pneumothorax. The heart is normal in size for portable technique. IMPRESSION: No acute pulmonary finding. Electronically signed by: Krissy Bustamante MD (12/02/2020 5:59 PM) [facility] DICTATED and SIGNED BY: KRISSY BUSTAMANTE MD DATE: 12/02/20 [id number] 0 Course & Med Decision Making: Course & Med Decision Making Pertinent Labs and Imaging studies reviewed. (See chart for details) See HPI. Alert and oriented x4. Ambulatory with a steady gait. Speaks in full clear sentences. Skin pink warm and dry. Abdomen is soft and nontender. Vital signs are within normal limits. Afebrile. Patient states he is feeling much better and he is ready to go home. He has had 2 L of normal saline, Dilaudid, Toradol. [] Dragon Disclaimer: Dragon Disclaimer: This electronic medical record was generated, in whole or in part, using a voice recognition dictation system. Departure Departure Impression: Primary Impression: Sickle cell anemia with pain Disposition: HOME / SELF CARE / HOMELESS Condition: STABLE Referrals: NO PCP (PCP) Patient Instructions: Sickle Cell Pain Crisis Additional Instructions: Follow-up with primary care physician as needed. Drink plenty of fluids to stay hydrated especially with the weather getting warmer. Continue taking your medications as prescribed. SHOBHA PATEL APRN December 02, 2020 17:21
[2020-12-02] MEDS ORDERED: HYDROmorphone 2 MG/ML VIAL IVP ONE (17:30)
[2020-12-02] MEDS ORDERED: KETOROLAC 30 MG/ML VIAL. IVP ONE (17:30)
[2020-12-02] MEDS ORDERED: IV NORMAL SALINE 1000ML BAG 1,000 ML IV ONE (18:00)
[2020-12-02 18:02] LABS: BASO # 0.1 x10^3/uL (0.0-0.2); BASO % 1 % (0-3); EOS # 0.3 x10^3/uL (0.0-0.7); EOS % 2 % (0-3); HEMATOCRIT 27.1 % (39.0-53.0); HEMOGLOBIN 9.3 g/dL (13.0-17.5); LYMPH # 3.8 x10^3/uL (1.0-4.8); LYMPH % 29 % (24-48); MEAN CORPUSCULAR HEMOGLOBIN 29 pg (25-35); MEAN CORPUSCULAR HGB CONC 34 g/dL (31-37); MEAN CORPUSCULAR VOLUME 85 fL (79-100); MONO # 1.2 x10^3/uL (0.0-1.1); MONO % 9 % (0-9); NEUT # 7.6 x10^3/uL (1.8-7.7); NEUT % 58 % (31-73); PLATELET COUNT 422 x10^3/uL (140-400); RED BLOOD COUNT 3.17 x10^6/uL (4.30-5.70); WHITE BLOOD COUNT 13.1 x10^3/uL (4.0-11.0)
--- NOTE | 2020-12-02 18:02 | RAD ---
EXAM: Chest, single view. HISTORY: Sickle cell crisis. COMPARISON: 09/27/2020 FINDINGS: A frontal view of the chest is obtained. There is no infiltrate, pleural effusion or pneumo thorax. The heart is normal in size for portable technique. IMPRESSION: No acute pulmonary finding. Electronically signed by: Krissy King MD (12/02/2020 5:59 PM) [facility]
[2020-12-02 18:06] LABS: CALCIUM 8.8 mg/dL (8.5-10.1); CREATININE 0.7 mg/dL (0.7-1.3); GFR 164.9; POTASSIUM 4.2 mmol/L (3.5-5.1)
--- NOTE | 2020-12-02 18:09 | EKG ---
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
[2020-12-02 18:11] LABS: ALBUMIN 4.2 g/dL (3.4-5.0); ALBUMIN/GLOBULIN RATIO 1.5 (1.0-1.7)
[2020-12-02 19:21] LABS: BILIRUBIN,URINE NEGATIVE (NEG); CLARITY,URINE CLEAR; COLOR,URINE YELLOW; NITRITE,URINE NEGATIVE (NEG); PROTEIN,URINE NEGATIVE (NEG-TRACE)
[2020-12-02 19:27] LABS: BARBITURATES NEG (NEG); BENZODIAZEPINES NEG (NEG); CANNABINOIDS NEG (NEG); COCAINE NEG (NEG); METHADONE NEG (NEG); OPIATES POS (NEG); PHENCYCLIDINE NEG (NEG)
[2020-12-02 19:29] LABS: AMPHETAMINE/METHAMPHETAMINE NEG (NEG)
[2020-12-02 19:32] LABS: BACTERIA,URINE 0 /HPF (0-FEW); RBC,URINE 0 /HPF (0-2); WBC,URINE 0 /HPF (0-4)
[2020-12-02 20:02] VITALS: BP 116/78
== END 2020-12-02 20:12 | disposition home or self-care (01) ==
LOC: ER 15:05
DX: D57.00 Hb-SS disease with crisis, unspecified (principal); Z88.4 Allergy status to anesthetic agent; Z88.5 Allergy status to narcotic agent; Z91.018 Allergy to other foods; Z88.8 Allergy status to other drugs, medicaments and biological substances
CPT/HCPCS: 36415; 71045; 80053; 80307; 81001; 84484; 85025; 85045; 93005; 96361; 96374; 96375; 99285; J1170; J1885; J7030

== ENCOUNTER 2021-12-14 11:45 | Emergency (ER) | payer MEDICAID ==
[~2021-12-14] VITALS: Ht 182.9 cm; Wt 69.5 kg
[2021-12-14] MEDS ORDERED: HYDROmorphone 2 MG/ML INJ. IVP ONE ×2 (12:15→13:45)
[2021-12-14] MEDS ORDERED: KETOROLAC 30 MG/ML VIAL. IVP ONE (12:15)
[2021-12-14] MEDS ORDERED: IV NORMAL SALINE 1000ML BAG 1,000 ML IV ONE (12:15)
[2021-12-14 13:25] LABS: BASO # 0.1 x10^3/uL (0.0-0.2); BASO % 1 % (0-3); EOS # 0.2 x10^3/uL (0.0-0.7); EOS % 2 % (0-3); HEMATOCRIT 24.8 % (39.0-53.0); HEMOGLOBIN 8.5 g/dL (13.0-17.5); LYMPH # 2.9 x10^3/uL (1.0-4.8); LYMPH % 28 % (24-48); MEAN CORPUSCULAR HEMOGLOBIN 30 pg (25-35); MEAN CORPUSCULAR HGB CONC 34 g/dL (31-37); MEAN CORPUSCULAR VOLUME 87 fL (79-100); MONO # 1.3 x10^3/uL (0.0-1.1); MONO % 13 % (0-9); NEUT # 5.9 x10^3/uL (1.8-7.7); NEUT % 57 % (31-73); PLATELET COUNT 432 x10^3/uL (140-400); RED BLOOD COUNT 2.86 x10^6/uL (4.30-5.70); RED CELL DISTRIBUTION WIDTH 17.7 % (11.5-14.5); WHITE BLOOD COUNT 10.5 x10^3/uL (4.0-11.0)
--- NOTE | 2021-12-14 13:42 | PHYS DOC ---
Past Medical History Past Medical History: Sickle Cell Disease Past Surgical History: No Surgical History Additional Past Surgical Histo: wrist Smoking Status: Never Smoker Alcohol Use: Occasionally General Adult EDM: Chief Complaint: PAIN CONTROL HPI: HPI: Patient is a 26-year-old male who presents today with sickle cell pain. Patient states that the pain is in his back and his right hip. Patient states the pain started Monday, he said this pain is very typical for his sickle cell crisis. Patient states he is followed at the [facility] sickle cell clinic on a regular basis for his management. Patient denies chest pain, shortness of breath, fever or chills. Review of Systems: Review of Systems: Constitutional: Denies fever or chills. [] Eyes: Denies change in visual acuity. [] HENT: Denies nasal congestion or sore throat. [] Respiratory: Denies cough or shortness of breath. [] Cardiovascular: Denies chest pain or edema. [] GI: Denies abdominal pain, nausea, vomiting, bloody stools or diarrhea. [] : Denies dysuria. [] Musculoskeletal: Back and right hip pain Integument: Denies rash. [] Neurologic: Denies headache, focal weakness or sensory changes. [] Endocrine: Denies polyuria or polydipsia. [] Lymphatic: Denies swollen glands. [] Psychiatric: Denies depression or anxiety. [] Heart Score: C/O Chest Pain: No Risk Factors: Risk Factors: DM, Current or recent (<one month) smoker, HTN, HLP, family history of CAD, obesity. Risk Scores: Score 0 - 3: 2.5% MACE over next 6 weeks - Discharge Home Score 4 - 6: 20.3% MACE over next 6 weeks - Admit for Clinical Observation Score 7 - 10: 72.7% MACE over next 6 weeks - Early Invasive Strategies Current Medications: Current Medications Medications (Trade) Dose Ordered Sig/Heather Start Time Stop Time Status Last Admin Dose Admin Hydromorphone HCl (Dilaudid) 1 mg 1X ONCE 12/14/21 12:15 12/14/21 12:23 DC 12/14/21 12:54 1 MG Ketorolac Tromethamine (Toradol 30mg Vial) 30 mg 1X ONCE 12/14/21 12:15 12/14/21 12:18 DC 12/14/21 12:54 30 MG Sodium Chloride 1,000 ml @ 999 mls/hr 1X ONCE 12/14/21 12:15 12/14/21 13:15 DC 12/14/21 12:55 999 MLS/HR Allergies: Allergies: Allergies Coded Allergies Type Severity Reaction Last Updated Verified fentanyl Allergy Intermediate Rash 11/09/21 Yes haloperidol Allergy Intermediate Swelling 11/09/21 Yes morphine Allergy Intermediate Hives 11/09/21 Yes mushroom Allergy Intermediate 11/09/21 Yes Physical Exam: PE: Constitutional: Well developed, well nourished, no acute distress, non-toxic appearance. [] HENT: Normocephalic, atraumatic, bilateral external ears normal, oropharynx moist, no oral exudates, nose normal. [] Eyes: PERRLA, EOMI, conjunctiva normal, no discharge. [] Neck: Normal range of motion, no tenderness, supple, no stridor. [] Cardiovascular:Heart rate regular rhythm, no murmur [] Lungs & Thorax: Bilateral breath sounds clear to auscultation [] Abdomen: Bowel sounds normal, soft, no tenderness, no masses, no pulsatile masses. [] Skin: Warm, dry, no erythema, no rash. [] Back: No tenderness, no CVA tenderness. [] Extremities: No tenderness, no cyanosis, no clubbing, ROM intact, no edema. [] Neurologic: Alert and oriented X 3, normal motor function, normal sensory function, no focal deficits noted. [] Psychologic: Affect normal, judgement normal, mood normal. [] Current Patient Data: Labs: Laboratory Tests Test 12/14/21 12:48 White Blood Count 10.5 x10^3/uL (4.0-11.0) Red Blood Count 2.88 x10^6/uL (4.30-5.70) L Hemoglobin 8.5 g/dL (13.0-17.5) L Hematocrit 24.8 % (39.0-53.0) L Mean Corpuscular Volume 87 fL (79-100) Mean Corpuscular Hemoglobin 30 pg (25-35) Mean Corpuscular Hemoglobin Concent 34 g/dL (31-37) Red Cell Distribution Width 17.7 % (11.5-14.5) H Platelet Count 432 x10^3/uL (140-400) H Neutrophils (%) (Auto) 57 % (31-73) Lymphocytes (%) (Auto) 28 % (24-48) Monocytes (%) (Auto) 13 % (0-9) H Eosinophils (%) (Auto) 2 % (0-3) Basophils (%) (Auto) 1 % (0-3) Neutrophils # (Auto) 5.9 x10^3/uL (1.8-7.7) Lymphocytes # (Auto) 2.9 x10^3/uL (1.0-4.8) Monocytes # (Auto) 1.3 x10^3/uL (0.0-1.1) H Eosinophils # (Auto) 0.2 x10^3/uL (0.0-0.7) Basophils # (Auto) 0.1 x10^3/uL (0.0-0.2) Absolute Reticulocyte Count 0.149 x10^6/uL (0.020-0.120) Percent Reticulocyte Count 5.2 % (0.5-2.3) H Immature Reticulocyte Fraction 0.63 (0.20-0.60) H Laboratory Tests 12/14/21 12:48 Vital Signs: Vital Signs Date Time Temp Pulse Resp B/P (MAP) Pulse Ox O2 Delivery O2 Flow Rate FiO2 12/14/21 13:54 70 20 104/63 (77) 99 Room Air 12/14/21 13:24 78 18 106/65 (79) 97 Room Air 12/14/21 12:59 80 20 113/66 (82) 99 Room Air 12/14/21 12:24 74 20 106/66 (79) 100 Room Air 12/14/21 11:55 98.3 70 16 115/62 (79) 100 Room Air 98.3 Vital Signs Date Time Temp Pulse Resp B/P (MAP) Pulse Ox O2 Delivery O2 Flow Rate FiO2 12/14/21 11:55 98.3 70 16 115/62 (79) 100 Room Air 98.3 EKG: EKG: [] Radiology/Procedures: Radiology/Procedures: [] Course & Med Decision Making: Course & Med Decision Making Pertinent Labs and Imaging studies reviewed. (See chart for details) 1520 patient states his pain has improved, patient was given 1 L of IV fluids as well as a dose of Toradol and 2 doses of Dilaudid, patient states his pain is tolerable enough to go home and managed on an outpatient basis. Patient is instructed to follow-up with his primary care clinic at the [facility] for further evaluation and management of his sickle cell disease. Patient states he does have pain medication at home and is able to to manage this at home. Patient is instructed to return here to the emergency department should he have increased pain, shortness of breath or chest pain. Dragon Disclaimer: Dragon Disclaimer: This electronic medical record was generated, in whole or in part, using a voice recognition dictation system. Departure Departure Impression: Primary Impression: Sickle cell anemia with pain Disposition: HOME / SELF CARE / HOMELESS Condition: STABLE Referrals: JOSUE KAPADIA (PCP) Patient Instructions: Sickle Cell Pain Crisis Additional Instructions: Take your medications as prescribed by your primary care physician Follow-up with your primary care physician tomorrow by phone for further evaluation and management of your sickle cell crisis, you stated your primary care physician is a [facility] sickle cell clinic Return to the emergency department should you have chest pain, shortness of air, or increased pain. ANGELINE FELIX DRYWALL HANGER December 14, 2021 13:42
[2021-12-14 13:51] LABS: CALCIUM 8.7 mg/dL (8.5-10.1); GFR 108.5
[2021-12-14 15:54] VITALS: BP 108/67
== END 2021-12-14 16:22 | disposition home or self-care (01) ==
LOC: ER 11:45
DX: D57.00 Hb-SS disease with crisis, unspecified (principal); Z88.4 Allergy status to anesthetic agent; Z88.5 Allergy status to narcotic agent; Z91.018 Allergy to other foods; Z88.8 Allergy status to other drugs, medicaments and biological substances
CPT/HCPCS: 36415; 80048; 85025; 85045; 96361; 96374; 96375; 96376; 99285; J1170; J1885; J7030